=== PATIENT | female | born 1995 | race Caucasian/White ===

== ENCOUNTER 2023-07-19 16:26 | Outpatient (OUT) | payer OTHER, SELFPAY ==
[2023-07-19 16:50] LABS: Basophils Percent Auto 0.5 % (0.2-2.0); Eosinophils Percent Auto 0.5 % (0.9-7.0); Hematocrit 37.8 % (36.0-48.0); Hemoglobin 12.2 g/dL (12.0-16.0); Immature Granulocytes Abs Auto 0.02 10^3/uL (0.00-0.03); Immature Granulocytes Pct Auto 0.2 % (0.0-0.5); Lymphocytes Absolute Auto 1.7 10^3/uL (1.2-3.8); Lymphocytes Percent Auto 20.3 % (20.5-60.0); Mean Corpuscular HGB Conc 32.3 g/dL (29.9-35.2); Mean Corpuscular Hemoglobin 26.7 pg (26.7-34.0); Mean Corpuscular Volume 82.7 fL (81.0-99.0); Mean Platelet Volume 9.1 fL (9.5-13.5); Monocytes Absolute Auto 0.7 10^3/uL (0.3-0.8); Monocytes Percent Auto 8.2 % (1.7-12.0); Neutrophils Absolute Auto 5.7 10^3/uL (1.4-6.5); Neutrophils Percent Auto 70.3 % (43.0-75.0); Platelet Count 268 10^3/uL (150-450); Red Blood Count 4.57 10^6/uL (4.20-5.40); Red Cell Distribution Width 14.5 % (11.0-15.0); White Blood Count 8.2 10^3/uL (4.0-11.0)
[2023-07-19 16:59] LABS: Estimated Average Glucose 103 mg/dL; Glycohemoglobin A1C 5.2 % (4.5-6.2)
[2023-07-19 17:20] LABS: Free T4 0.94 ng/dL (0.76-1.46)
[2023-07-19 17:25] LABS: HCG Quantitative <1 mIU/mL; Thyroid Stimulating Hormone 1.642 uIU/mL (0.358-3.740)
[2023-07-21 04:10] LABS: FSH 6.1 mIU/mL (.); Luteinizing Hormone(LH) 8.6 mIU/mL (.)
[2023-07-25 16:10] LABS: DHEA, Serum 185 ng/dL (31-701)
== END 2023-07-19 16:27 | disposition home or self-care (01) ==
LOC: LAB 16:26
PROVIDERS: Visit Provider Obstetrics & Gynecology
DX: E28.2 Polycystic ovarian syndrome (principal); R73.09 Other abnormal glucose
CPT/HCPCS: 36415; 82626; 82627; 83001; 83002; 83036; 84439; 84443; 84702; 85025

== ENCOUNTER 2023-12-04 20:27 | Outpatient (REF) | payer OTHER, SELFPAY | END 2023-12-04 20:28 | disposition home or self-care (01) | LOC: LAB 20:27 | PROVIDERS: Visit Provider Obstetrics & Gynecology | DX: Z01.419 Encounter for gynecological examination (general) (routine) without abnormal findings (principal) | CPT/HCPCS: 88175 ==